=== PATIENT | male | born 1995 ===

== ENCOUNTER 2017-04-16 18:24 | Emergency (ER) | payer SELFPAY ==
[2017-04-16 18:31] VITALS: TEMP 98.1
--- NOTE | 2017-04-16 19:44 | C.PDOC ---
History Of Present Illness The patient, a 21 y/o male, presents to the ED for evaluation of bilateral heel pain which began around 1 month ago. Patient notes the pain radiates towards his bilateral knees. Patient notes he does a lot of heavy lifting and walking a work. He denies back pain, direct injury/trauma to the affected areas, extremity numbness/weakness. Time Seen by Provider: 04/16/17 18:40 Chief Complaint (Nursing): Lower Extremity Problem/Injury History Per: Patient History/Exam Limitations: no limitations Onset/Duration Of Symptoms: Other (1 month ) Current Symptoms Are (Timing): Still Present Severity: Mild Pain Scale Rating Of: 5 Recent travel outside of the [place]: No Additional History Per: Patient - Knee Description Of Injury: denies: Fell, Struck With Object, Struck Against Object, Twisted, Laceration Past Medical History Reviewed: Historical Data, Nursing Documentation, Vital Signs Vital Signs: Last Vital Signs Temp 98.1 F 04/16/17 18:30 Pulse 65 04/16/17 19:55 Resp 20 04/16/17 19:55 BP 102/66 04/16/17 19:55 Pulse Ox 98 04/16/17 21:26 - Medical History PMH: No Chronic Diseases Surgical History: No Surg Hx Family History: States: No Known Family Hx - Social History Hx Alcohol Use: No Hx Substance Use: No - Immunization History Hx Tetanus Toxoid Vaccination: No Hx Influenza Vaccination: No Hx Pneumococcal Vaccination: No Review Of Systems Except As Marked, All Systems Reviewed And Found Negative. Musculoskeletal: Positive for: Other (b/l heel pain radiating to b/l knees ) Neurological: Negative for: Weakness, Numbness Physical Exam - Physical Exam Appears: Non-toxic, No Acute Distress Skin: Normal Color, Warm, Dry, No Rash Head: Atraumatic, Normacephalic Eye(s): bilateral: Normal Inspection Oral Mucosa: Moist Neck: Normal ROM, Supple Extremity: Normal ROM, No Tenderness, Capillary Refill (less than 2 seconds ), No Deformity, No Swelling Pulses: Left Dorsalis Pedis: Normal, Right Dorsalis Pedis: Normal Neurological/Psych: Oriented x3, Normal Speech, Normal Cognition, Normal Motor Gait: Steady ED Course And Treatment O2 Sat by Pulse Oximetry: 98 (on RA) Pulse Ox Interpretation: Normal Progress Note: Patient received Toradol IM and and prednisone PO. Patient's symptoms are not indicative of XR imaging at this time as there is no injury and a normal physical exam. Disposition - Disposition Referrals: 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 - Scribe Statement The provider has reviewed the documentation as recorded by the Scribe (Angela Lopez) All medical record entries made by the Scribe were at my direction and personally dictated by me. I have reviewed the chart and agree that the record accurately reflects my personal performance of the history, physical exam, medical decision making, and the department course for this patient. I have also personally directed, reviewed, and agree with the discharge instructions and disposition.
[2017-04-16 19:55] VITALS: BP 102/66; PULSE 65; RESP 20
[2017-04-16 21:25] VITALS: O2SAT 98
== END 2017-04-16 19:57 | disposition home or self-care (01) ==
LOC: C.ER 18:24
DX: M72.2 Plantar fascial fibromatosis (principal); M25.562 Pain in left knee; M25.561 Pain in right knee